=== PATIENT | female | born 1950 | race Caucasian/White ===

== ENCOUNTER 2017-11-01 13:09 | Emergency (ER) | payer MEDICARE ==
[~2017-11-01] VITALS: Ht 156.2 cm; Wt 82.1 kg
[2017-11-01 13:10] VITALS: Ht 156.2 cm; Wt 82.1 kg
[2017-11-01] MEDS ORDERED: PROCHLORPERAZINE 5 MG/ML 2 ML VIAL IV STA (13:31)
[2017-11-01] MEDS ORDERED: DEXAMETHASONE SOD INJ 4 MG/ML VIAL IV STA (13:31)
[2017-11-01] MEDS ORDERED: SODIUM CHLORIDE 0.9% 500ML 500 ML IV STA (13:31)
[2017-11-01] MEDS ORDERED: DiphenhydrAMINE HCL 50 MG/ML VIAL IV STA (13:31)
[2017-11-01] MEDS ORDERED: KETOROLAC TROMETHAMINE 30 MG/ML VIAL IV STA (13:31)
--- NOTE | 2017-11-01 13:47 | EMERGENCY ROOM VISIT NOTE ---
History First contact with patient: 13:22 Chief Complaint: HEADACHE Stated Complaint: MIGRAINE,NAUSEA History of Present Illness The patient is a 67 year old female who presents to the Emergency Room with complaints of a migraine headache that she woke up with this morning. She describes as a throbbing sensation throughout her head. She also feels nauseated. She has not vomited yet. She is sensitive to light. No changes in vision otherwise. No recent illnesses such as sore throat, fever, sinusitis or cough. She tried Stadol at home with no relief. Review of Systems 10 system review performed and negative unless noted in HPI or below Past Medical/Surgical History Migraines Fibromyalgia Social History Smoking Status: Never Smoker Marital Status: Current/Historical Medications Scheduled Anastrozole (Anastrozole), 1 TAB PO DAILY Atorvastatin (Lipitor), 10 MG PO DAILY Colchicine (Colchicine), 0.6 MG PO UD Dexlansoprazole (Dexilant), 60 MG PO DAILY Escitalopram (Lexapro), 10 MG PO DAILY Fluticasone Propionate (Nasal) (Flonase Allergy Relief), 2 SPRAYS SHERI DAILY Levetiracetam (Keppra), 1.5 TABS PO HS Levothyroxine Sodium (Levothyroxine Sodium), 1 TAB PO QAM Metformin HCl (Metformin HCl), 50 MG PO BID Milnacipran Hcl (Savella), 100 MG PO BID Olanzapine (Zyprexa), 2 TAB PO HS Ondasetron Odt (Zofran Odt), 4 MG SL Q6H Pregabalin (Lyrica), 150 MG PO BID [Botox], 0 INJ Mo [Opano], 10 MG PO QID Physical Exam Vital Signs Date Time Temp Pulse Resp B/P (MAP) Pulse Ox O2 Delivery O2 Flow Rate FiO2 11/01/17 16:12 36.8 109 19 180/91 93 11/01/17 16:04 109 19 180/91 93 Room Air 11/01/17 15:06 112 20 173/84 95 Room Air 11/01/17 13:10 36.8 110 16 190/97 98 Room Air Physical Exam GENERAL: 67-year-old female, obviously uncomfortable., SKIN: The skin was without rashes, erythema, edema, or bruising. . HEAD: Normocephalic atraumatic. EYES: Pupils equal round and reactive to light and accommodation. Conjunctivae without injection, sclerae without icterus. Extraocular movements intact. MOUTH: Mucous membranes moist. Tonsils are not enlarged. Pharynx without erythema or exudate. Uvula midline. Airway patent. Tongue does not deviate. NECK: Supple without nuchal rigidity. No lymphadenopathy. Cervical spine is nontender. No JVD. Full flexion and extension of the neck HEART: Regular rate and rhythm without murmurs gallops or rubs. LUNGS: Clear to auscultation bilaterally without wheezes, rales or rhonchi. No accessory muscle use. ABDOMEN: Positive bowel sounds x 4.Soft, MUSCULOSKELETAL: No muscle atrophy, erythema, or edema noted.. Strength 5/5 throughout. NEURO: Neurologic exam is limited secondary to pain. Cranial nerves grossly intact. Cerebellar function intact. Patient was alert and oriented to person place and time. Sensation intact.. Medical Decision & Procedures ER Provider Diagnostic Interpretation: CT head w/o contrast IMPRESSION: No acute intracranial findings Electronically signed by: David Samson M.D. 11/01/2017 2:30 PM Laboratory Results 11/01/17 13:53 Red Blood Count 4.96, Mean Corpuscular Volume 75.8, Mean Corpuscular Hemoglobin 23.6, Mean Corpuscular Hemoglobin Concent 31.1, Mean Platelet Volume 9.2, Neutrophils (%) (Auto) 71.7, Lymphocytes (%) (Auto) 19.5, Monocytes (%) (Auto) 6.9, Eosinophils (%) (Auto) 1.2, Basophils (%) (Auto) 0.4, Neutrophils # (Auto) 5.30, Lymphocytes # (Auto) 1.44, Monocytes # (Auto) 0.51, Eosinophils # (Auto) 0.09, Basophils # (Auto) 0.03 11/01/17 13:53 Test 11/01/17 13:53 White Blood Count 7.39 K/uL (4.8-10.8) Red Blood Count 4.96 M/uL (4.2-5.4) Hemoglobin 11.7 g/dL (12.0-16.0) Hematocrit 37.6 % (37-47) Mean Corpuscular Volume 75.8 fL (80-100) Mean Corpuscular Hemoglobin 23.6 pg (25-34) Mean Corpuscular Hemoglobin Concent 31.1 g/dl (32-36) Platelet Count 443 K/uL (130-400) Mean Platelet Volume 9.2 fL (7.4-10.4) Neutrophils (%) (Auto) 71.7 % Lymphocytes (%) (Auto) 19.5 % Monocytes (%) (Auto) 6.9 % Eosinophils (%) (Auto) 1.2 % Basophils (%) (Auto) 0.4 % Neutrophils # (Auto) 5.30 K/uL (1.4-6.5) Lymphocytes # (Auto) 1.44 K/uL (1.2-3.4) Monocytes # (Auto) 0.51 K/uL (0.11-0.59) Eosinophils # (Auto) 0.09 K/uL (0-0.5) Basophils # (Auto) 0.03 K/uL (0-0.2) RDW Standard Deviation 53.8 fL (36.4-46.3) RDW Coefficient of Variation 19.6 % (11.5-14.5) Immature Granulocyte % (Auto) 0.3 % Immature Granulocyte # (Auto) 0.02 K/uL (0.00-0.02) Anion Gap 6.0 mmol/L (3-11) Est Creatinine Clear Calc Drug Dose 72.5 ml/min Estimated GFR () 95.4 Estimated GFR (Non- 82.3 BUN/Creatinine Ratio 10.8 (10-20) Calcium Level 9.1 mg/dl (8.5-10.1) Medications Administered Medications (Trade) Dose Ordered Sig/Farhad Route Start Time Stop Time Status Last Admin Dose Admin Ketorolac Tromethamine (Toradol Inj) 30 mg NOW STAT IV 11/01/17 13:31 11/01/17 13:33 DC 11/01/17 13:55 30 MG Diphenhydramine HCl (Benadryl Inj) 25 mg NOW STAT IV 11/01/17 13:31 11/01/17 13:33 DC 11/01/17 13:55 25 MG Prochlorperazine Edisylate (Compazine Inj) 10 mg NOW STAT IV 11/01/17 13:31 11/01/17 13:33 DC 11/01/17 13:55 10 MG Dexamethasone Sodium Phosphate (Decadron Inj) 10 mg NOW STAT IV 11/01/17 13:31 11/01/17 13:33 DC 11/01/17 13:55 10 MG Sodium Chloride 500 ml @ 999 mls/hr Q31M STAT IV 11/01/17 13:31 11/01/17 14:01 DC 11/01/17 13:54 999 MLS/HR Hydromorphone HCl (Dilaudid Inj) 1 mg ONE ONCE IV 11/01/17 15:00 11/01/17 15:01 DC 11/01/17 15:05 1 MG Morphine Sulfate (MoRPHine SULFATE INJ) 2 mg NOW STAT IV 11/01/17 15:55 11/01/17 15:56 DC 11/01/17 16:04 2 MG ED Course Patient was seen and examined Vital signs including blood pressure were reviewed medications list was verified with patient Labs were obtained, and a saline lock was established The patient was medicated with Toradol 30 mg, Benadryl 25 mg, Decadron 10 mg, Compazine 10 mg IV. She was also hydrated with 500 cc of normal saline. The patient was also seen and examined by my supervising physician A CT of the head was performed and reviewed The patient was reassessed and still complaining of pain She was given 1 dose of Dilaudid 1 mg IV I again examined the patient. She was feeling much better. She was comfortable being discharged home. Prior to discharge, the patient was requesting an additional dose of narcotic medication. She was ordered morphine 2 mg IV. I reviewed discharge instructions the patient. They voiced understanding and had no further questions. Medical Decision Differential includes: Migraine, hypertensive urgency acute intracranial bleed, trauma, meningitis, encephalitis, increased intracranial pressure, mass or mass effect, facial or dental infection, temporal arteritis, CVA, TIA, acute hypertensive emergency, sinusitis, carbon monoxide exposure. This patient is a 67-year-old female that presents to the emergency department with a severe headache, photophobia and nausea. She has a history of migraines , and says this feels like her typical migraine. On exam, neurologic exam was initially limited secondary to pain, but intact. Due to the severity of symptoms and blood pressure, I ordered a CT of the head. This was negative. The patient did require narcotics to get her headache under control. I do have a suspicion of narcotic seeking. The patient was given a prescription for Zofran to go. She will continue her migraine medication as prescribed, and follow-up with her primary care physician in addition to her neurologist. She will return with worsening symptoms. This chart was completed in part utilizing [employer] Speech Voice Recognition software. Attempts were made to minimize the grammatical errors, random word insertions, pronoun errors and incomplete sentences. Any formal questions or concerns about the content, text or information contained within the body of this dictation should be directly addressed to the provider for clarification. Medication Reconcilliation Current Medication List: was personally reviewed by me Blood Pressure Screening Patient's blood pressure: Elevated blood pressure Impression Primary Impression: Headache Departure Information Dispostion Home / Self-Care Condition GOOD Prescriptions Ondasetron Odt (ZOFRAN ODT) 4 Mg Tab 4 MG SL Q6H for Nausea, #20 TAB Prov: Palma Linton PA-C 11/01/17 Referrals No Doctor, Assigned (PCP) Patient Instructions My [facility] Additional Instructions You were evaluated in the emergency department for a migraine headache. Do not drive as you received narcotic medication. Continue current medications as prescribed Stay well-hydrated. Rest in a dark room today. Zofran 1 tab every 6 hours as needed for nausea You have been examined and treated today on an emergency basis only. This is not a substitute for, or an effort to provide, complete comprehensive medical care. It is impossible to recognize and treat all injuries or illnesses in a single emergency department visit. It is therefore important that you follow up closely with [facility], your PCP, and/or your specialist(s). Call as soon as possible for an appointment. Please return with any new or concerning symptoms
[2017-11-01 14:19] LABS: BASO % 0.4 %; BASO ABS # 0.03 K/uL (0-0.2); EOS % 1.2 %; EOS ABS # 0.09 K/uL (0-0.5); HEMATOCRIT 37.6 % (37-47); HEMOGLOBIN 11.7 g/dL (12.0-16.0); IG# 0.02 K/uL (0.00-0.02); LYMPH % 19.5 %; LYMPH ABS # 1.44 K/uL (1.2-3.4); MEAN CELL VOLUME 75.8 fL (80-100); MEAN CORPUSCULAR HEMOGLOBIN 23.6 pg (25-34); MEAN CORPUSCULAR HGB CONC 31.1 g/dl (32-36); MEAN PLATELET VOLUME 9.2 fL (7.4-10.4); MONO % 6.9 %; MONO ABS # 0.51 K/uL (0.11-0.59); NEUT % 71.7 %; PLATELET COUNT 443 K/uL (130-400); RED CELL DISTRIBUTION WIDTH CV 19.6 % (11.5-14.5); RED CELL DISTRIBUTION WIDTH SD 53.8 fL (36.4-46.3); WHITE BLOOD COUNT 7.39 K/uL (4.8-10.8)
[2017-11-01 14:28] LABS: CALCIUM 9.1 mg/dl (8.5-10.1); CREATININE 0.76 mg/dl (0.60-1.20); POTASSIUM 4.1 mmol/L (3.5-5.1)
--- NOTE | 2017-11-01 14:31 | DIAGNOSTIC IMAGING REPORT ---
CT HEAD WITHOUT CONTRAST (CT) CLINICAL HISTORY: Severe headache. Hypertension. COMPARISON STUDY: No previous studies for comparison. TECHNIQUE: Axial CT of the brain is performed from the vertex to the skull base. IV contrast was not administered for this examination. A dose lowering technique was utilized adhering to the principles of ALARA. CT DOSE: 537.48 mGy.cm FINDINGS: No intra or extra-axial mass lesions are visualized. There is no CT evidence of acute cortical infarction. There is no evidence of midline shift. There is no acute hemorrhage. No calvarial fractures are visualized. There are patchy white matter hypodensities likely on a small vessel basis. There is no evidence of pathologic ventricular dilatation. There is no evidence of acute sinusitis IMPRESSION: No acute intracranial findings Electronically signed by: David Samson M.D. 11/01/2017 2:30 PM Dictated Date/Time: 11/01/2017 2:29 PM
[2017-11-01] MEDS ORDERED: ESCI10TA17 PO (14:58)
[2017-11-01] MEDS ORDERED: ATOR10TA82 PO (14:58)
[2017-11-01] MEDS ORDERED: MILN100T PO (14:58)
[2017-11-01] MEDS ORDERED: DEXL60CA4 PO (14:58)
[2017-11-01] MEDS ORDERED: GLC500 PO (14:58)
[2017-11-01] MEDS ORDERED: FLUT0.15 NAE (14:58)
[2017-11-01] MEDS ORDERED: OLAN-111 PO (14:58)
[2017-11-01] MEDS ORDERED: PREG1CAP70 PO (14:58)
[2017-11-01] MEDS ORDERED: COLC0.6T54 PO (14:58)
[2017-11-01] MEDS ORDERED: [UNRECOGNIZED DRUG - OTHER] PO (14:58)
[2017-11-01] MEDS ORDERED: BOTOX INJ (14:58)
[2017-11-01] MEDS ORDERED: LEVE750T PO (14:58)
[2017-11-01] MEDS ORDERED: ANAS1TAB6 PO (14:58)
[2017-11-01] MEDS ORDERED: LEVO75TA5 PO (14:58)
[2017-11-01] MEDS ORDERED: HYDROmorphone INJ 1 MG/ML SYR IV ONE (15:00)
[2017-11-01] MEDS ORDERED: ONDA4TAB10 SL (15:54)
[2017-11-01] MEDS ORDERED: MoRPHine SULFATE 2 MG/ML CARP IV STA (15:55)
[2017-11-01 16:12] VITALS: BP 180/91; PULSE 109; TEMP 36.8; O2SAT 93
== END 2017-11-01 16:13 | disposition home or self-care (01) ==
LOC: C.EDB 13:10 → C.EDA 16:13
DX: G43.909 Migraine, unspecified, not intractable, without status migrainosus (principal); R11.0 Nausea; M79.7 Fibromyalgia; Z79.899 Other long term (current) drug therapy

== ENCOUNTER 2017-11-02 06:58 | Emergency (ER) | payer MEDICARE ==
[~2017-11-02] VITALS: Ht 157.5 cm; Wt 81.8 kg
[~2017-11-02 06:58] MED LIST: ANAS1TAB6 PO; ATOR10TA82 PO; BOTOX INJ; COLC0.6T54 PO; DEXL60CA4 PO; ESCI10TA17 PO; FLUT0.15 NAE; GLC500 PO; LEVE750T PO; LEVO75TA5 PO; MILN100T PO; OLAN-111 PO; ONDA4TAB10 SL; PREG1CAP70 PO; [UNRECOGNIZED DRUG - OTHER] PO
[2017-11-02 07:00] VITALS: TEMP 36.6; Ht 157.5 cm; Wt 81.8 kg
[2017-11-02] MEDS ORDERED: DiphenhydrAMINE HCL 50 MG/ML VIAL IV STA (07:20)
[2017-11-02] MEDS ORDERED: PROCHLORPERAZINE INJ 10 MG in SYRINGE 8 ML IV STA (07:20)
[2017-11-02] MEDS ORDERED: KETOROLAC TROMETHAMINE 30 MG/ML VIAL IV STA (07:20)
--- NOTE | 2017-11-02 07:40 | DIAGNOSTIC IMAGING REPORT ---
CHEST ONE VIEW PORTABLE HISTORY: Evaluate Fever/Sepsis COMPARISON: None. FINDINGS: Elevation of the right hemidiaphragm. Right basilar linear densities favor subsegmental atelectasis. The lungs are otherwise clear. The heart is normal in size. No pleural effusions. No pneumothorax. Prior cholecystectomy. Surgical clips within the right axilla. IMPRESSION: Mild elevation of the right hemidiaphragm with right basilar subsegmental atelectasis. Otherwise, no acute process within the chest. Electronically signed by: Orlin Hicks M.D. 11/02/2017 7:38 AM Dictated Date/Time: 11/02/2017 7:37 AM
[2017-11-02 07:51] LABS: PTT PATIENT 23.1 SECONDS (21.0-31.0)
[2017-11-02 07:56] LABS: ALBUMIN 4.1 gm/dl (3.4-5.0); ALT/SGPT 40 U/L (12-78); CALCIUM 8.5 mg/dl (8.5-10.1); CARBON DIOXIDE 23 mmol/L (21-32); CREATININE 0.79 mg/dl (0.60-1.20); GLUCOSE 165 mg/dl (70-99); LIPASE 81 U/L (73-393); POTASSIUM 3.7 mmol/L (3.5-5.1); SODIUM 137 mmol/L (136-145)
[2017-11-02 08:01] LABS: ALKALINE PHOSPHATASE 84 U/L (45-117); AST/SGOT 18 U/L (15-37); CKMB 1.4 ng/ml (0.5-3.6); TOTAL PROTEIN 7.5 gm/dl (6.4-8.2)
[2017-11-02 08:06] LABS: BLOOD UREA NITROGEN 14 mg/dl (7-18)
[2017-11-02 08:40] VITALS: O2SAT 97
--- NOTE | 2017-11-02 08:53 | EMERGENCY ROOM VISIT NOTE ---
History Report prepared by Vedaibronni: Syed Kahn Under the Supervision of: Dr. Macario Lima D.O. First contact with patient: 07:12 Chief Complaint: CHEST PAIN Stated Complaint: CHEST PAIN, MIGRAINE History of Present Illness The patient is a 67 year old female who presents to the Emergency Room with complaints of constant headache beginning yesterday. She also complains of chest pain. She has a history of frequent migraines, and was seen in the ED yesterday for one. The patient states that her migraine has not improved. She had a head CT yesterday which was negative. She follows up with neurology for her migraines. Per , the patient's blood pressure was abnormally high yesterday. He states that the patient's blood pressure often goes high with her migraines. He states that the patient presents to the ED today due to her developing her chest pain. Source of History: patient Onset: Yesterday Position: head Quality: ache Timing: constant Associated Symptoms: + chest pain Review of Systems See HPI for pertinent positives & negatives. A total of 10 systems reviewed and were otherwise negative. Past Medical & Surgical Medical Problems: (1) Breast cancer (2) Fibromyalgia (3) Migraine Family History No pertinent family history stated. Social History Smoking Status: Never Smoker Marital Status: Current/Historical Medications Scheduled Anastrozole (Anastrozole), 1 TAB PO DAILY Atorvastatin (Lipitor), 10 MG PO DAILY Colchicine (Colchicine), 0.6 MG PO UD Dexlansoprazole (Dexilant), 60 MG PO DAILY Escitalopram (Lexapro), 10 MG PO DAILY Fluticasone Propionate (Nasal) (Flonase Allergy Relief), 2 SPRAYS SHERI DAILY Levetiracetam (Keppra), 1.5 TABS PO HS Levothyroxine Sodium (Levothyroxine Sodium), 1 TAB PO QAM Metformin HCl (Metformin HCl), 50 MG PO BID Milnacipran Hcl (Savella), 100 MG PO BID Olanzapine (Zyprexa), 2 TAB PO HS Ondasetron Odt (Zofran Odt), 4 MG SL Q6H Pregabalin (Lyrica), 150 MG PO BID [Botox], 0 INJ Mo [Opano], 10 MG PO QID Allergies Coded Allergies: Latex (Unverified Adverse Reaction, Intermediate, HIVES, 11/02/17) Physical Exam Vital Signs Date Time Temp Pulse Resp B/P (MAP) Pulse Ox O2 Delivery O2 Flow Rate FiO2 11/02/17 09:37 100 21 186/110 97 11/02/17 09:35 120 20 186/110 97 Room Air 11/02/17 08:40 97 Room Air 11/02/17 08:39 122 15 163/95 97 11/02/17 07:48 Room Air 11/02/17 07:21 117 11/02/17 07:00 36.6 119 18 197/106 96 Room Air Physical Exam CONSTITUTIONAL/VITAL SIGNS: Reviewed / noted above. GENERAL: Non-toxic in appearance. INTEGUMENTARY: Warm, dry, and [place]abbie. HEAD: Normocephalic. EYES: without scleral icterus or trauma. ENT/OROPHARYNX: clear and moist. LYMPHADENOPATHY/NECK: Is supple without lymphadenopathy or meningismus. RESPIRATORY: Lungs clear and equal. CARDIOVASCULAR: Regular rate and rhythm. GI/ABDOMEN: Soft and nontender. No organomegaly or pulsatile mass. No rebound or guarding. Normal bowel sounds. EXTREMITIES: Warm and well perfused. BACK: No CVA tenderness. NEUROLOGICAL: Intact without focal deficits. PSYCHIATRIC: normal affect. MUSCULOSKELETAL: Normally developed with good muscle tone. Medical Decision & Procedures ER Provider Diagnostic Interpretation: Radiology results as stated below per my review and radiologist interpretation: CHEST ONE VIEW PORTABLE FINDINGS: Elevation of the right hemidiaphragm. Right basilar linear densities favor subsegmental atelectasis. The lungs are otherwise clear. The heart is normal in size. No pleural effusions. No pneumothorax. Prior cholecystectomy. Surgical clips within the right axilla. IMPRESSION: Mild elevation of the right hemidiaphragm with right basilar subsegmental atelectasis. Otherwise, no acute process within the chest. Electronically signed by: Orlin Hicks M.D. 11/02/2017 7:38 AM Laboratory Results 11/02/17 07:31 Test 11/02/17 07:31 Prothrombin Time 10.3 SECONDS (9.0-12.0) Prothromb Time International Ratio 1.0 (0.9-1.1) Activated Partial Thromboplast Time 23.1 SECONDS (21.0-31.0) Partial Thromboplastin Ratio 0.9 Anion Gap 9.0 mmol/L (3-11) Est Creatinine Clear Calc Drug Dose 70.4 ml/min Estimated GFR () 91.0 Estimated GFR (Non- 78.6 BUN/Creatinine Ratio 17.5 (10-20) Calcium Level 8.5 mg/dl (8.5-10.1) Total Bilirubin 0.9 mg/dl (0.2-1) Direct Bilirubin 0.2 mg/dl (0-0.2) Aspartate Amino Transf (AST/SGOT) 18 U/L (15-37) Alanine Aminotransferase (ALT/SGPT) 40 U/L (12-78) Alkaline Phosphatase 84 U/L (45-117) Total Creatine Kinase 50 U/L (26-192) Creatine Kinase MB 1.4 ng/ml (0.5-3.6) Creatine Kinase MB Ratio 2.8 (0-3.0) Troponin I < 0.015 ng/ml (0-0.045) Total Protein 7.5 gm/dl (6.4-8.2) Albumin 4.1 gm/dl (3.4-5.0) Lipase 81 U/L (73-393) Laboratory results as stated above per my review. Medications Administered Medications (Trade) Dose Ordered Sig/Farhad Route Start Time Stop Time Status Last Admin Dose Admin Ketorolac Tromethamine (Toradol Inj) 30 mg NOW STAT IV 11/02/17 07:20 11/02/17 07:23 DC 11/02/17 07:38 30 MG Diphenhydramine HCl (Benadryl Inj) 25 mg NOW STAT IV 11/02/17 07:20 11/02/17 07:23 DC 11/02/17 07:39 25 MG Prochlorperazine Edisylate 10 mg/ Syringe 10 ml @ 5 mls/min NOW STAT IV 11/02/17 07:20 11/02/17 07:23 DC 11/02/17 07:52 5 MLS/MIN ECG Per My Interpretation Indication: chest pain Rate (beats per minute): 119 Rhythm: sinus tachycardia Findings: no ectopy, other (No ST elevations. ) ED Course 15: Previous medical records were reviewed. The patient was evaluated in room A2. A complete history and physical examination was performed. 0720: Ordered Prochlorperazine Edisylate 10 mg/Syringe 10 mL @ 5 mL/min IV, Benadryl Inj 25 mg IV, Toradol Inj 30 mg IV. 0900: On reevaluation, the patient is resting comfortably. I discussed the results and findings with the patient. She verbalized agreement of the treatment plan. The patient was discharged home. Medical Decision the differential was considered includes acute myocardial infarction, acute coronary syndrome, myocarditis, pericarditis, pericardial effusions /tamponade, esophageal perforation, thoracic aortic dissection, pulmonary embolism, pneumonia, pneumothorax, pancreatitis, shingles, acute cholecystitis, perforated abdominal viscus. This is a 67-year-old female who presents to the ED with a chief complaint of chest discomfort. She also reports a migraine. The patient is visiting from out of town. She states that she does have a history of migraines. She also reports a history of fibromyalgia. The patient was here yesterday and received medication including morphine for her headache. She states that her headache continues today. The was worried about her blood pressure being elevated and she reported some chest discomfort earlier this morning. She does not have this report today. Her physical exam was unremarkable. Her vital signs revealed hypertension. The patient's test results yesterday were reviewed. She had a normal CBC and a normal CT scan of the brain yesterday. Today her chemistry panel was unremarkable, troponin is negative and a chest x- ray was negative for acute disease. The patient was treated with IV Toradol, IV Compazine, and IV Benadryl. She was told the results of the test. She is felt to be stable for discharge and outpatient follow-up. Medication Reconcilliation Current Medication List: was personally reviewed by me Blood Pressure Screening Patient's blood pressure: Elevated blood pressure Blood pressure disposition: Referred to PCP Impression Primary Impression: Substernal precordial chest pain Additional Impression: Migraine Scribe Attestation The scribe's documentation has been prepared under my direction and personally reviewed by me in its entirety. I confirm that the note above accurately reflects all work, treatment, procedures, and medical decision making performed by me. Departure Information Dispostion Home / Self-Care Referrals No Doctor, Assigned (PCP) Patient Instructions My [facility] Additional Instructions Follow-up with your doctor for further care and evaluation in 1-7 days. Return to the emergency department for worsening or new symptoms or any concerns. You have been examined and treated today on an emergency basis only. This is not a substitute for, or an effort to provide, complete comprehensive medical care. It is impossible to recognize and treat all injuries or illnesses in a single emergency department visit. It is therefore important that you follow up closely with your doctor. Call as soon as possible for an appointment. Have your blood pressure rechecked by your doctor. Problem Qualifiers
[2017-11-02 09:37] VITALS: BP 186/110; PULSE 100; O2SAT 97
== END 2017-11-02 09:51 | disposition home or self-care (01) ==
LOC: C.EDB 06:59 → C.EDA 09:51
DX: R07.2 Precordial pain (principal); G43.909 Migraine, unspecified, not intractable, without status migrainosus; Z85.3 Personal history of malignant neoplasm of breast; M79.7 Fibromyalgia; Z79.899 Other long term (current) drug therapy; Z91.040 Latex allergy status

== ENCOUNTER 2017-11-02 19:12 | Emergency (ER) | payer MEDICARE ==
[~2017-11-02] VITALS: Ht 156.2 cm; Wt 80.0 kg
[2017-11-02 19:35] VITALS: TEMP 36.7; Ht 156.2 cm; Wt 80.0 kg
[2017-11-02] MEDS ORDERED: DiphenhydrAMINE HCL 50 MG/ML VIAL IV STA (20:18)
[2017-11-02] MEDS ORDERED: KETOROLAC TROMETHAMINE 30 MG/ML VIAL IV STA (20:18)
[2017-11-02] MEDS ORDERED: PROCHLORPERAZINE 5 MG/ML 2 ML VIAL IV STA (20:18)
[2017-11-02] MEDS ORDERED: SODIUM CHLORIDE 0.9% 1000ML 1,000 ML IV STA ×2 (20:18→22:37)
[2017-11-02 20:48] LABS: BASO % 0.1 %; BASO ABS # 0.01 K/uL (0-0.2); EOS % 0.2 %; EOS ABS # 0.02 K/uL (0-0.5); HEMATOCRIT 35.5 % (37-47); HEMOGLOBIN 11.6 g/dL (12.0-16.0); IG# 0.02 K/uL (0.00-0.02); LYMPH % 26.1 %; LYMPH ABS # 2.41 K/uL (1.2-3.4); MEAN CELL VOLUME 74.9 fL (80-100); MEAN CORPUSCULAR HEMOGLOBIN 24.5 pg (25-34); MEAN CORPUSCULAR HGB CONC 32.7 g/dl (32-36); MEAN PLATELET VOLUME 8.8 fL (7.4-10.4); MONO ABS # 0.74 K/uL (0.11-0.59); NEUT % 65.4 %; NEUT ABS # 6.03 K/uL (1.4-6.5); PLATELET COUNT 438 K/uL (130-400); RED CELL DISTRIBUTION WIDTH CV 19.7 % (11.5-14.5); RED CELL DISTRIBUTION WIDTH SD 53.3 fL (36.4-46.3); WHITE BLOOD COUNT 9.23 K/uL (4.8-10.8)
[2017-11-02 21:02] LABS: PTT PATIENT 23.9 SECONDS (21.0-31.0)
[2017-11-02 21:06] LABS: ALBUMIN 3.9 gm/dl (3.4-5.0); ALT/SGPT 36 U/L (12-78); BLOOD UREA NITROGEN 17 mg/dl (7-18); CALCIUM 8.4 mg/dl (8.5-10.1); CARBON DIOXIDE 23 mmol/L (21-32); CREATININE 0.69 mg/dl (0.60-1.20); GLUCOSE 146 mg/dl (70-99); POTASSIUM 3.5 mmol/L (3.5-5.1); SODIUM 138 mmol/L (136-145)
[2017-11-02 21:17] LABS: ALKALINE PHOSPHATASE 77 U/L (45-117); AST/SGOT 17 U/L (15-37); TOTAL PROTEIN 7.2 gm/dl (6.4-8.2)
[2017-11-02] MEDS ORDERED: HYDROmorphone INJ 0.5 MG/0.5 ML SYR IV STA (21:36)
[2017-11-02] MEDS ORDERED: MAGNESIUM SULFATE 1GM / D5W 1 GM BAG IV STA (22:37)
[2017-11-02] MEDS ORDERED: DEXAMETHASONE **PF** INJ 10 MG/ML VIAL IV STA (22:37)
--- NOTE | 2017-11-03 00:39 | EMERGENCY ROOM VISIT NOTE ---
History First contact with patient: 20:00 Chief Complaint: HEADACHE Stated Complaint: MIGRAINE History of Present Illness The patient is a 67 year old female who presents to the Emergency Room via private vehicle accompanied by male with complaints of "migraine". The patient states that she has been experiencing a migraine for the past 2 days. She states that she was seen here last night and the symptoms have continued. She states that she has tried medications at home and is not alleviated the pain. She states that she is concerned for her blood pressure as it is elevated. She rates the overall pain as an 8/10. She states that she has a long history of migraines and is currently seeing a neurologist in [place]. She is here in [place] noting that her daughter will be having a child on Thursday. She is visiting. She states that the current headache has been since Thursday and notes it is indeed similar to previous migraine headaches. There is left temporal pressure, it is throbbing and continuous in nature. She states that previously she was given Zofran, Toradol, Compazine and Benadryl. She states that Dilaudid works for her. She notes when she is in [place] at home sometimes she has to go to the ER and received medications like morphine and Dilaudid. She denies any chest pain, shortness of breath, nausea, vomiting, vision changes. She states that Imitrex was discontinued by her neurologist. She denies any stroke history, cardiac history. She does have a history for that of migraine, polymyalgia rheumatica, and breast cancer. Review of Systems A complete 10-point Review of Systems was discussed with the patient, with pertinent positives and negatives listed in the History of Present Illness. All remaining Review of Systems questions can be considered negative unless otherwise specified. Past Medical/Surgical History Medical Problems: (1) Breast cancer (2) Fibromyalgia (3) Migraine Family History Noncontributory. Social History Smoking Status: Unknown if Ever Smoked Marital Status: Patient is from [place] and is currently visiting her daughter here in [place]. Current/Historical Medications Scheduled Anastrozole (Anastrozole), 1 TAB PO DAILY Atorvastatin (Lipitor), 10 MG PO DAILY Colchicine (Colchicine), 0.6 MG PO UD Dexlansoprazole (Dexilant), 60 MG PO DAILY Escitalopram (Lexapro), 10 MG PO DAILY Fluticasone Propionate (Nasal) (Flonase Allergy Relief), 2 SPRAYS SHERI DAILY Levetiracetam (Keppra), 1.5 TABS PO HS Levothyroxine Sodium (Levothyroxine Sodium), 1 TAB PO QAM Metformin HCl (Metformin HCl), 50 MG PO BID Milnacipran Hcl (Savella), 100 MG PO BID Olanzapine (Zyprexa), 2 TAB PO HS Ondasetron Odt (Zofran Odt), 4 MG SL Q6H Pregabalin (Lyrica), 150 MG PO BID [Botox], 0 INJ Mo [Opano], 10 MG PO QID Physical Exam Vital Signs Date Time Temp Pulse Resp B/P (MAP) Pulse Ox O2 Delivery O2 Flow Rate FiO2 11/03/17 00:54 98 15 170/98 95 11/02/17 22:00 93 18 155/87 100 Room Air 11/02/17 19:35 36.7 114 18 164/100 94 Room Air Physical Exam VITAL SIGNS - Vital signs and nursing notes were reviewed. Afebrile, hypertensive and tachycardic. GENERAL -67-year-old female appearing her stated age who is in no acute distress. Communicates well with provider and answers questions appropriately. SKIN - Without rashes. No meningeal or petechial rash. HEAD - NC/AT. EYES - PERRL with EOMI bilaterally. Sclera anicteric. EARS - No deformities of external structures noted on gross examination bilaterally. External auditory canals without discharge or otorrhea. Tympanic membranes pearly matthews without retraction or bulging. No fluid or purulent material visualized behind the TM. Handle of malleus, umbo, cone of light, pars tensa/flaccid all easily visualized. NOSE - Midline and without cyanosis. No epistaxis or purulent drainage noted. Septum midline without deviation or septal hematoma noted. MOUTH/OROPHARYNX - Without perioral cyanosis. Buccal mucosa pink and moist and without leukoplakia. Tongue midline with equal elevation of palate bilaterally. No tonsillar hypertrophy, erythema, or exudates noted. Poor dentition noted. NECK - Neck with FROM. Supple to palpation. No lymphadenopathy noted. No nuchal rigidity. LUNGS - Chest wall symmetric without accessory muscle use, intercostals retractions, or central cyanosis. Normal vesicular breath sounds CTA B/L. No wheezes, rales, or rhonchi appreciated. CARDIAC - RRR with S1/S2. No murmur, rubs, or gallops appreciated. EXTREMITIES - No clubbing or peripheral cyanosis. No pretibial edema present. + 5/5 strength noted in UE/LE bilaterally. NEUROLOGIC - Cranial nerves II through XII grossly intact. Sensory intact to light touch throughout. PSYCH - A&Ox3 and cooperates fully with examiner. Pt is very pleasant and interacts well with examiner. Medical Decision & Procedures Laboratory Results 11/02/17 20:35 Red Blood Count 4.74, Mean Corpuscular Volume 74.9, Mean Corpuscular Hemoglobin 24.5, Mean Corpuscular Hemoglobin Concent 32.7, Mean Platelet Volume 8.8, Neutrophils (%) (Auto) 65.4, Lymphocytes (%) (Auto) 26.1, Monocytes (%) (Auto) 8.0, Eosinophils (%) (Auto) 0.2, Basophils (%) (Auto) 0.1, Neutrophils # (Auto) 6.03, Lymphocytes # (Auto) 2.41, Monocytes # (Auto) 0.74, Eosinophils # (Auto) 0.02, Basophils # (Auto) 0.01 11/02/17 20:35 Test 11/02/17 20:35 White Blood Count 9.23 K/uL (4.8-10.8) Red Blood Count 4.74 M/uL (4.2-5.4) Hemoglobin 11.6 g/dL (12.0-16.0) Hematocrit 35.5 % (37-47) Mean Corpuscular Volume 74.9 fL (80-100) Mean Corpuscular Hemoglobin 24.5 pg (25-34) Mean Corpuscular Hemoglobin Concent 32.7 g/dl (32-36) Platelet Count 438 K/uL (130-400) Mean Platelet Volume 8.8 fL (7.4-10.4) Neutrophils (%) (Auto) 65.4 % Lymphocytes (%) (Auto) 26.1 % Monocytes (%) (Auto) 8.0 % Eosinophils (%) (Auto) 0.2 % Basophils (%) (Auto) 0.1 % Neutrophils # (Auto) 6.03 K/uL (1.4-6.5) Lymphocytes # (Auto) 2.41 K/uL (1.2-3.4) Monocytes # (Auto) 0.74 K/uL (0.11-0.59) Eosinophils # (Auto) 0.02 K/uL (0-0.5) Basophils # (Auto) 0.01 K/uL (0-0.2) RDW Standard Deviation 53.3 fL (36.4-46.3) RDW Coefficient of Variation 19.7 % (11.5-14.5) Immature Granulocyte % (Auto) 0.2 % Immature Granulocyte # (Auto) 0.02 K/uL (0.00-0.02) Erythrocyte Sedimentation Rate 10 mm/hr (0-21) Prothrombin Time 10.6 SECONDS (9.0-12.0) Prothromb Time International Ratio 1.0 (0.9-1.1) Activated Partial Thromboplast Time 23.9 SECONDS (21.0-31.0) Partial Thromboplastin Ratio 0.9 Anion Gap 9.0 mmol/L (3-11) Est Creatinine Clear Calc Drug Dose 78.7 ml/min Estimated GFR () 105.9 Estimated GFR (Non- 91.4 BUN/Creatinine Ratio 24.5 (10-20) Calcium Level 8.4 mg/dl (8.5-10.1) Magnesium Level 2.4 mg/dl (1.8-2.4) Total Bilirubin 1.0 mg/dl (0.2-1) Aspartate Amino Transf (AST/SGOT) 17 U/L (15-37) Alanine Aminotransferase (ALT/SGPT) 36 U/L (12-78) Alkaline Phosphatase 77 U/L (45-117) C-Reactive Protein < 0.29 mg/dl (0-0.29) Total Protein 7.2 gm/dl (6.4-8.2) Albumin 3.9 gm/dl (3.4-5.0) Globulin 3.3 gm/dl (2.5-4.0) Albumin/Globulin Ratio 1.2 (0.9-2) Thyroid Stimulating Hormone (TSH) 1.210 uIu/ml (0.300-4.500) Lyme Disease IgG Antibody NEG (NEG) Lyme Disease IgM Antibody NEG (NEG) Medications Administered Medications (Trade) Dose Ordered Sig/Farhad Route Start Time Stop Time Status Last Admin Dose Admin Sodium Chloride 1,000 ml @ 999 mls/hr Q1H1M STAT IV 11/02/17 20:18 11/02/17 21:18 DC 11/02/17 20:18 999 MLS/HR Ketorolac Tromethamine (Toradol Inj) 30 mg NOW STAT IV 11/02/17 20:18 11/02/17 20:25 DC 11/02/17 20:18 30 MG Hydromorphone HCl (Dilaudid Inj) 0.5 mg NOW STAT IV 11/02/17 21:36 11/02/17 21:37 DC 11/02/17 21:58 0.5 MG Magnesium Sulfate (Magnesium Sulfate) 1 gm NOW STAT IV 11/02/17 22:37 11/02/17 22:39 DC 11/02/17 22:52 1 GM Dexamethasone Sodium Phosphate (Dexamethasone Inj Pf) 10 mg NOW STAT IV 11/02/17 22:37 11/02/17 22:39 DC 11/02/17 22:52 10 MG Sodium Chloride 1,000 ml @ 999 mls/hr Q1H1M STAT IV 11/02/17 22:37 11/02/17 23:37 DC 11/02/17 22:52 999 MLS/HR Medical Decision Patient was seen and evaluated as above. Previous 2 visits were reviewed. It appears that she had never been here before up until the past few days. It appears this is because she is visiting her daughter in the area, as the patient notes she is from [place]. She is here today again with a continuous/ persistent headache. Review was performed of nursing notes and vital signs. After obtaining a thorough history and physical examination the above work up was performed. She had a CT scan of the head here which was negative previously. I do not believe this needs repeated. She was offered lumbar puncture and declined. IV access was established, and I did elect to repeat blood work as I am not familiar with the patient's previous history of migraines , and want to ensure that there is no change/interval development of an abnormality. CBC reveals no concerning leukocytosis or anemia. Hemoglobin stable at 11.6. ESR normal. Coags normal. Metabolic panel reveals no evidence of kidney or liver failure. TSH normal. C-reactive protein normal. Lyme testing is negative. I initially had ordered the patient Toradol, Benadryl and Compazine with fluids however she notes that she would not like the Compazine or Benadryl as they make her feel jittery. These were canceled. She was reevaluated and the headache persisted. It is important at this time to note her blood pressure was found to be persistently elevated but I believe this is likely secondary to her pain. She notes that this headache is identical to previous migraines therefore I favor this to not be from her blood pressure, rather I suspect her blood pressure is secondary to the pain from the headache. I did review her previous vitals from the other 2 visits and it appears that during her stay on this particular visit, she has had the lowest blood pressure/hypertensive readings thus far. She was then given 0.5 mg of Dilaudid in an attempt to decrease her pain as she had received numerous medications in the recent past. She was reevaluated and the pain persisted. She was then given another liter of fluids, 10mg of IV Decadron, and 1 g of magnesium sulfate. She was reevaluated and feeling better. I do believe that follow-up is important with the family doctor. She notes that she is visiting. They do question if she could have a neurologic consult here, and I informed them that follow-up in the outpatient setting is warranted as there is no finding on exam at this time to necessitate emergent admission for the headache. Particularly given that upon reevaluation the patient was found to be sleeping in the room, and was easily awakened upon my entrance. Given that her pain was well enough for her to sleep and does not appear to be sedated I believe that outpatient management is warranted. I did inform them that they are more than welcome to return with any new/concerning symptoms, however cautioned them that further use of narcotics for her headaches is discouraged. The patient was educated upon management, educated upon worrisome symptoms which to return, had questions answered prior to discharge, and was discharged home in good condition. Case was discussed with the attending physician. I attest that I have personally reviewed the patient medication list. I attest that I have reviewed the patient's blood pressure and it was found to be elevated, I believe secondary to situation and she is to follow closely in the outpatient setting In the evaluation and treatment of this patient, the following differential diagnoses were considered: Concussion, Contrecoup Injury, Brain Tumor, Depression, Encephalitis, Hypothyroidism, Meningitis, CVA, TIA, Migraine, Cluster Headache, Intracranial Abnormality, Intracranial Hemorrhage, Subdural Hematoma, Subarachnoid Hemorrhage, Hydrocephalus. Impression Primary Impression: Headache Additional Impression: Anemia Departure Information Dispostion Home / Self-Care Condition GOOD Referrals No Doctor, Assigned (PCP) Zaid Akbar M.D. Patient Instructions My [facility] Additional Instructions You have been treated in the Emergency Department for a Headache. You have received pain medicine in the emergency department which impairs your ability to operate a vehicle. It is illegal for you to drive after receiving these medicines. For pain control, you can use the following [id number] medicines: - Regular strength (325mg/tab) Tylenol (acetaminophen) 2 tabs every 4-6 hours as needed. Do not exceed 12 tablets in a 24 hour period. Avoid taking more than 3 grams (3000 mg) of Tylenol per day. This includes any other sources of acetaminophen you may take on a regular basis. - Regular strength (200 mg/tab) Advil (ibuprofen) 1-2 tabs every 4-6 hours as needed. Do not exceed a dose of 3200 mg per day. You should relax in a quiet, dark place for the rest of the day. Avoid any possible triggers including: cigarette smoke, caffeine, nicotine, chocolate, wine, beer, loud noises or music, or bright lights. You should schedule a follow-up appointment in 2-3 days with your Primary Care Provider or established Neurologist for further evaluation and treatment of your Headache. Your provider number for a neurologist in the area. Return to the Emergency Department if your current symptoms worsen despite treatment course outlined above, or if you develop any of the following symptoms : intractable pain despite aforementioned treatment course, visual disturbances , loss of vision, unilateral weakness or facial drooping, slurring of speech, loss of coordination, or loss of consciousness. Problem Qualifiers
[2017-11-03 00:54] VITALS: BP 170/98; PULSE 98; O2SAT 95
== END 2017-11-03 00:55 | disposition home or self-care (01) ==
LOC: C.EDB 19:14 → C.EDD 11-03 00:55
DX: R51 Headache (principal); D64.9 Anemia, unspecified; Z85.3 Personal history of malignant neoplasm of breast; M79.7 Fibromyalgia; Z79.899 Other long term (current) drug therapy